=== PATIENT | male | born 1980 | race Caucasian/White ===

== ENCOUNTER → 2017-03-13 | Outpatient (CLI) | payer BC ==
--- NOTE | 2017-03-13 10:28 | CT ---
EXAMINATION TYPE: CT abdomen pelvis w con DATE OF EXAM: 03/13/2017 COMPARISON: NONE HISTORY: LLQ pain, diarrhea, constipation and flatulence for approximately [address] DLP: 1396.30 mGycm Automated exposure control for dose reduction was used. TECHNIQUE: Helical acquisition of images was performed from the lung bases through the pelvis. CONTRAST: Performed with Oral Contrast and with IV Contrast, patient injected with 100 ml mL of Omnipaque 300. FINDINGS: LUNG BASES: No significant abnormality is appreciated. LIVER/GB: The liver appears to be slightly hypodense. This could be due to hepatic steatosis, evaluat ion is suboptimal on a contrast-enhanced examination. There is suspicion of focal fatty sparing in th e gallbladder fossa. The gallbladder is unremarkable. There is no intra or extrahepatic biliary dilat ation. PANCREAS: No significant abnormality is seen. SPLEEN: No significant abnormality is seen. ADRENALS: No significant abnormality is seen. KIDNEYS: There is a 8 mm interpolar cortical cyst identified within the left kidney. A dromedary hump is also noted, this is normal. There is no hydronephrosis. FREE AIR: No free air is visualized. RETROPERITONEAL ADENOPATHY: None visualized REPRODUCTIVE ORGANS: No significant abnormality is seen URINARY BLADDER: No significant abnormality is seen. PELVIC ADENOPATHY: None visualized. OSSEOUS STRUCTURES: No significant abnormality is seen. BOWEL: There is a moderate amount stool noted in colon with stool noted in the rectum. There are sev eral areas where the colonic wall is questionably thickened. These are best seen on series 3 on image 79 where there is some thickening noted of the left aspect of the superior rectum. This could be due to fecal matter however the extent of nonopacification by the contrast measures 2.7 x 1.7 cm. There is a second area which is concerning is in the distal descending colon best seen on image 74. This ar ea demonstrates an adequate amount of intraluminal gas wall is more than what would be expected raffi lly. There is also vague pericolonic infiltration of the fat. OTHER: There is a tiny fat filled left inguinal hernia. There is a tiny fat filled umbilical hernia. IMPRESSION: AT LEAST 2 AREAS OF SUSPECTED COLONIC WALL THICKENING. ALTHOUGH FINDINGS COULD BE OF NO CLINICAL SIGN IFICANCE THE POSSIBILITY OF A NEOPLASM AT THESE LOCATIONS IS DIFFICULT TO ENTIRELY EXCLUDE AND A COLO NOSCOPY IS RECOMMENDED. SUSPECTED HEPATIC STEATOSIS. CORRELATION WITH LIVER FUNCTION TESTS IS RECOMMENDED.
== END | disposition home or self-care (01) ==
LOC: RADCTMAIN 08:19
PROVIDERS: ATTEND Family Medicine
DX: K59.09 Other constipation (principal); R19.7 Diarrhea, unspecified; R10.32 Left lower quadrant pain
CPT/HCPCS: 74177; Q9967

== ENCOUNTER 2017-04-01 12:02 | Day surgery (SDC) | payer BC ==
[2017-03-30 14:47] VITALS: BMI 30.2
[~2017-04-01 12:02] MED LIST: LACTATED RINGERS 1,000 ML IV SCH
[2017-04-01 12:23] VITALS: TEMP 97.6
[2017-04-01] MEDS ORDERED: LIDOCAINE 1% 20 ML VIAL (10MG/ML) FOR IV START INTRADERMA ONE (12:40)
[2017-04-01] MEDS ORDERED: PROPOFOL 10 MG/ML 20 ML VIAL IV ONE (12:55)
[2017-04-01] MEDS ORDERED: LIDOCAINE 1% INJ 10MG/ML (20 ML MDV) ONE (12:55)
--- NOTE | 2017-04-01 12:59 | P.GSHP ---
History of Present Illness H&P Date: 04/01/17 Chief Complaint: Left lower quadrant pain This is a 36-year-old male who's had complaints of left lower quadrant pain. Patient had a computed tomography scan performed which showed thickening of the rectum and descending colon. He will today for colonoscopy to for inflammation or neoplasm of the colon. He states he's had pain for present 6 months. - Constitutional Constitutional: Reports as per HPI Past Medical History Past Medical History: Asthma, GERD/Reflux, Hypertension Additional Past Medical History / Comment(s): carpral tunnel History of Any Multi-Drug Resistant Organisms: None Reported Past Surgical History: No Surgical Hx Reported Additional Past Surgical History / Comment(s): WISDOM THEETH EXTRACTION Past Anesthesia/Blood Transfusion Reactions: Motion Sickness Smoking Status: Never smoker - Past Family History Mother Family Medical History: Pulmonary Embolus Medications and Allergies Home Medications Medication Instructions Recorded Confirmed Type Lisinopril [Zestril] 20 mg PO DAILY 01/21/14 04/01/17 History Pantoprazole Sodium [Protonix] 20 mg PO DAILY 01/21/14 04/01/17 History Albuterol Inhaler [Ventolin Hfa 1 - 2 puff INHALATION Q6HR PRN 03/30/17 History Inhaler] Allergies Allergy/AdvReac Type Severity Reaction Status Date / Time ragweed pollen Allergy SNEEZING,ITCHY Verified 03/30/17 14:01 EYES Surgical - Exam Vital Signs Temp Pulse Resp BP Pulse Ox 97.6 F 75 18 126/97 98 04/01/17 12:18 04/01/17 12:18 04/01/17 12:18 04/01/17 12:18 04/01/17 12:18 - General well developed, no distress - Eyes PERRL - ENT normal pinna - Neck no masses - Respiratory normal expansion - Cardiovascular Rhythm: regular - Abdomen Abdomen: soft, non tender Assessment and Plan Plan: Colonic wall thickening on CAT scan. Left lower quadrant pain We'll perform colonoscopy.
--- NOTE | 2017-04-01 13:13 | P.OP ---
Date of Procedure: 04/01/17 Preoperative Diagnosis: Colonoscopy Postoperative Diagnosis: Mild diverticular changes Sigmoid colon biopsy pathology pending Procedure(s) Performed: Colonoscopy Implants: Anesthesia: MAC Surgeon: Alan Chu Pathology: other (Sigmoid colon biopsies) Condition: stable Disposition: PACU Indications for Procedure: Operative Findings: Description of Procedure: Patient's placed on the endoscopy table in the lateral position. He received IV sedation. Digital rectal exam was performed which revealed no abnormalities. The prostate was symmetric without nodules. The flexible colonoscope was then placed patient anus and passed throughout the entire colon. The ileocecal valve was visualized. The cecum, ascending and transverse colon appeared normal. In the descending; was mild diverticular changes. The distal area and; appeared to be minimally inflamed. A biopsies performed. The rectum appeared normal. There is no masses or tumors seen the rectum. There is known to any rectal formation. Scope was withdrawn for patient.
[2017-04-01 13:33] VITALS: BP 125/87; PULSE 87; RESP 18
== END 2017-04-01 13:56 | disposition home or self-care (01) ==
LOC: ORWHC2ENDO 12:02
PROVIDERS: ATTEND Surgery
DX: K57.30 Diverticulosis of large intestine without perforation or abscess without bleeding (principal); K21.9 Gastro-esophageal reflux disease without esophagitis; J45.909 Unspecified asthma, uncomplicated; I10 Essential (primary) hypertension; Z91.09 Other allergy status, other than to drugs and biological substances; Z79.899 Other long term (current) drug therapy
CPT/HCPCS: 45380; 88305; J2001; J2704

== ENCOUNTER → 2018-10-02 | Outpatient (CLI) | payer BC ==
--- NOTE | 2018-10-02 09:43 | MR ---
EXAMINATION TYPE: MR brain wo/w con DATE OF EXAM: 10/02/2018 9:34 AM COMPARISON: None. HISTORY: Migraine with aura /Vomiting TECHNIQUE: Multiplanar, multiecho imaging of the brain was obtained with and without intravenous adm inistration of 11.5 mL intravenous Gadavist. FINDINGS: Midline structures are unremarkable. There is a normal craniocervical junction. Echoplanar diffusion imaging is normal. There are normal vascular flow voids. The orbits are unremarkable. There is no evidence of a CP angle mass lesion. There is no acute focal lesion, mass effect or midline shift identified. I do not see evidence of int racranial blood. Following intravenous administration of gadolinium, I do not see evidence of abnormal enhancement. IMPRESSION: NORMAL MRI OF THE BRAIN.
== END | disposition home or self-care (01) ==
LOC: RADMRIMAIN 08:16
PROVIDERS: ATTEND Family Medicine
DX: G43.119 Migraine with aura, intractable, without status migrainosus (principal); I10 Essential (primary) hypertension; R11.10 Vomiting, unspecified
CPT/HCPCS: 82565; 84520; 70553; 36415; A9585

== ENCOUNTER 2019-12-25 21:26 | Emergency (ER) | payer BC ==
[2019-12-25] MEDS ORDERED: FAMOTIDINE 20 MG/2 ML VIAL IV STA (21:49)
[2019-12-25] MEDS ORDERED: SODIUM CHLORIDE 0.9% 1,000 ML IV STA (21:49)
[2019-12-25] MEDS ORDERED: MORPHINE SULFATE 4 MG/ML SYRINGE IV STA (21:49)
--- NOTE | 2019-12-25 22:01 | ED ---
Fever HPI - General Source: patient Mode of arrival: wheelchair Limitations: no limitations <Hima Barrett - Last Filed: 12/26/19 02:40> <Ranulfo Zhang - Last Filed: 12/27/19 06:11> - General Chief Complaint: Fever Stated Complaint: Fever Time Seen by Provider: 12/25/19 21:31 - History of Present Illness Initial Comments: Patient is a 39-year-old male with history of exercise-induced asthma presenting to the emergency department with a chief complaint of fever. Patient states a sudden onset of fever this morning. Patient reports waking up with a fever of 102. Patient reports taking Tylenol but was not able to break the fever. Patient reports nausea with 2 episodes of nonbilious, nonbloody vomiting. Does report a mild, productive cough for states that has been present for about 2 years due to his asthma. States he rarely uses the albuterol inhaler. States he had general body aches but reports going for a hike yesterday and relates the aches and pains to muscle soreness. Denies any wheezing or shortness of breath at this time. States today's also developed some dysuria and increased urgency but no frequency. He reports dribbling. States he is not able to have a full bowel movement since this morning. Denies any abdominal pain constipation or diarrhea. Denies testicular tenderness or swelling. Denies any penile discharge or rashes. No concern for STDs. States she has been drinking less than usual. Denies direct Covid exposure. (Hima Barrett) - Related Data Home Medications Medication Instructions Recorded Confirmed Lisinopril [Zestril] 20 mg PO DAILY 01/21/14 12/25/19 Pantoprazole Sodium [Protonix] 20 mg PO DAILY 01/21/14 12/25/19 Albuterol Inhaler (Bulk) [Ventolin 1 - 2 puff INHALATION RT-QID PRN 03/30/17 12/25/19 Hfa Inhaler] Acetaminophen Tab [Tylenol Tab] 1,000 mg PO Q6H PRN 12/25/19 12/25/19 Previous Rx's Medication Instructions Recorded Ondansetron Odt [Zofran Odt] 4 mg PO Q8HR PRN #14 tab 12/26/19 Allergies Allergy/AdvReac Type Severity Reaction Status Date / Time ragweed pollen Allergy SNEEZING,ITCHY Verified 12/25/19 22:18 EYES Review of Systems ROS Other: All systems not noted in ROS Statement are negative. <Hima Barrett - Last Filed: 12/26/19 02:40> ROS Other: All systems not noted in ROS Statement are negative. <ElancalixtoRanulfo - Last Filed: 12/27/19 06:11> ROS Statement: Those systems with pertinent positive or pertinent negative responses have been documented in the HPI. Past Medical History Past Medical History: Asthma, GERD/Reflux, Hypertension Additional Past Medical History / Comment(s): carpral tunnel History of Any Multi-Drug Resistant Organisms: None Reported Past Surgical History: No Surgical Hx Reported Additional Past Surgical History / Comment(s): WISDOM THEETH EXTRACTION Past Anesthesia/Blood Transfusion Reactions: Motion Sickness Past Psychological History: No Psychological Hx Reported Smoking Status: Never smoker - Past Family History Mother Family Medical History: Pulmonary Embolus <Hima Barrett - Last Filed: 12/26/19 02:40> General Exam Limitations: no limitations General appearance: alert, in no apparent distress Head exam: Present: atraumatic, normocephalic, normal inspection Eye exam: Present: normal appearance, PERRL, EOMI Pupils: Present: normal accommodation ENT exam: Present: normal exam, normal oropharynx, mucous membranes moist, TM's normal bilaterally, normal external ear exam Neck exam: Present: normal inspection, full ROM. Absent: lymphadenopathy Respiratory exam: Present: normal lung sounds bilaterally. Absent: respiratory distress, wheezes, rales, rhonchi, stridor, chest wall tenderness Cardiovascular Exam: Present: normal rhythm, tachycardia, normal heart sounds GI/Abdominal exam: Present: soft, normal bowel sounds. Absent: distended, tend erness, guarding exam: Present: normal inspection, circumcision. Absent: testicular tenderness, urethral discharge, scrotal swelling, vertical testicular lie Extremities exam: Present: normal inspection, full ROM Back exam: Present: normal inspection, full ROM Neurological exam: Present: alert, oriented X3 Psychiatric exam: Present: normal affect, normal mood Skin exam: Present: warm, dry, intact, normal color <Hima Barrett - Last Filed: 12/26/19 02:40> Course Vital Signs 0412/25/19 12/25/19 21:26 21:41 22:00 Temperature 99.6 F 102.3 F H Pulse Rate 143 H 121 H Pulse Rate [ Apical] Respiratory 18 16 Rate Blood Pressure 144/91 O2 Sat by Pulse 99 Oximetry 12/25/19 12/25/19 12/25/19 22:10 22:20 22:30 Temperature Pulse Rate 122 H 122 H 122 H Pulse Rate [ Apical] Respiratory 8 L 18 14 Rate Blood Pressure 109/74 109/74 109/74 O2 Sat by Pulse 99 97 97 Oximetry 12/25/19 12/25/19 12/25/19 22:40 22:50 23:00 Temperature Pulse Rate 120 H 112 H 130 H Pulse Rate [ Apical] Respiratory 11 L 16 10 L Rate Blood Pressure 109/74 109/74 109/74 O2 Sat by Pulse 97 97 99 Oximetry 12/25/19 12/25/19 12/25/19 23:10 23:20 23:30 Temperature Pulse Rate 121 H 115 H Pulse Rate [ Apical] Respiratory 8 L 18 Rate Blood Pressure 106/70 106/70 106/70 O2 Sat by Pulse 97 96 Oximetry 12/25/19 12/26/19 12/26/19 23:40 00:08 00:37 Temperature 102.0 F H Pulse Rate 112 H 110 H 111 H Pulse Rate [ 112 H Apical] Respiratory 15 16 16 Rate Blood Pressure 106/70 95/61 90/58 O2 Sat by Pulse 97 98 96 Oximetry 12/26/19 12/26/19 12/26/19 01:29 01:45 02:28 Temperature 100.9 F H 100.4 F H Pulse Rate 107 H 107 H 106 H Pulse Rate [ Apical] Respiratory 16 14 16 Rate Blood Pressure 93/62 101/60 111/65 O2 Sat by Pulse 96 96 96 Oximetry Medical Decision Making - Lab Data Result diagrams: 12/25/19 20:35 12/25/19 20:35 <Hima Barrett - Last Filed: 12/26/19 02:40> - Lab Data Result diagrams: 12/25/19 20:35 12/25/19 20:35 <Ranulfo Zhang - Last Filed: 12/27/19 06:11> - Medical Decision Making Patient is a 39-year-old male with history of asthma presented emergency Department with a chief complaint of fever. Sudden onset of a fever earlier today that was not able to be broken with Tylenol. On initial evaluation patient does not appear to be in any respiratory distress. Patient does report episodes of nonbilious, nonbloody vomiting. Patient was given antiemetics and fluids. on Reevaluation, patient reports the nausea has resolved. States he f eels better. Even after a liter of fluids, patient did appear to be slightly hypotensive. Patient was given antipyretics in the ED as well. Chest x-ray is unremarkable. CBC shows mild elevation of neutrophils but no leukocytosis. CMP shows mildly elevated bun which I suspect is secondary to fluid loss from vomiting. Patient did also complain of obstructive urinary symptoms. UA is unremarkable. Post void residual volume is 22 mL. EKG shows sinus tachycardia. Blood cultures and lactic were obtained. Lactate 1.7. Patient was given a second bolus fluids which improved his blood pressure. Patient continued to deny any shortness of breath, chest or abdominal pain. Covid testing pending. Patient advised to self isolate and continue taking Tylenol to alleviate the fever. Patient also given a prescription of Zofran. Patient advised to drink lots of fluids. also examined the patient and is agreeable with the treatment plan. Return parameters thoroughly discussed with patient was understanding and agreeable. (Hima Barrett) I saw this patient in conjunction with the physician catering administrative assistant. I performed independent history and physical exam. Agree with case management. (Ranulfo Zhang) - Lab Data Lab Results 12/25/19 12/25/19 12/25/19 Range/Units 20:35 20:35 23:17 WBC 9.6 (3.8-10.6) k/uL RBC 5.66 (4.30-5.90) m/uL Hgb 16.3 (13.0-17.5) gm/dL Hct 46.3 (39.0-53.0) % MCV 81.8 (80.0-100.0) fL MCH 28.7 (25.0-35.0) pg MCHC 35.1 (31.0-37.0) g/dL RDW 13.2 (11.5-15.5) % Plt Count 261 (150-450) k/uL Neutrophils % 91 % Lymphocytes % 5 % Monocytes % 3 % Eosinophils % 1 % Basophils % 0 % Neutrophils # 8.7 H (1.3-7.7) k/uL Lymphocytes # 0.5 L (1.0-4.8) k/uL Monocytes # 0.3 (0-1.0) k/uL Eosinophils # 0.1 (0-0.7) k/uL Basophils # 0.0 (0-0.2) k/uL Sodium 136 L (137-145) mmol/L Potassium 3.9 (3.5-5.1) mmol/L Chloride 103 (98-107) mmol/L Carbon Dioxide 18 L (22-30) mmol/L Anion Gap 15 mmol/L BUN 21 H (9-20) mg/dL Creatinine 1.17 (0.66-1.25) mg/dL Est GFR (CKD-EPI)AfAm 90 (>60 ml/min/1.73 sqM) Est GFR (CKD-EPI)NonAf 78 (>60 ml/min/1.73 sqM) Glucose 109 H (74-99) mg/dL Plasma Lactic Acid Derrick (0.7-2.0) mmol/L Calcium 9.9 (8.4-10.2) mg/dL Total Bilirubin 0.8 (0.2-1.3) mg/dL AST 36 (17-59) U/L ALT 26 (4-49) U/L Alkaline Phosphatase 64 (38-126) U/L Total Protein 8.2 (6.3-8.2) g/dL Albumin 4.8 (3.5-5.0) g/dL Amylase 77 (30-110) U/L Lipase 68 (23-300) U/L Urine Color Yellow Urine Appearance Clear (Clear) Urine pH 5.5 (5.0-8.0) Ur Specific [place] 1.019 (1.001-1.035) Urine Protein Trace H (Negative) Urine Glucose (UA) Negative (Negative) Urine Ketones Negative (Negative) Urine Blood Negative (Negative) Urine Nitrite Negative (Negative) Urine Bilirubin Negative (Negative) Urine Urobilinogen <2.0 (<2.0) mg/dL Ur Leukocyte Esterase Negative (Negative) Coronavirus (PCR) (Not Detected) 12/26/19 12/26/19 Range/Units 01:10 01:30 WBC (3.8-10.6) k/uL RBC (4.30-5.90) m/uL Hgb (13.0-17.5) gm/dL Hct (39.0-53.0) % MCV (80.0-100.0) fL MCH (25.0-35.0) pg MCHC (31.0-37.0) g/dL RDW (11.5-15.5) % Plt Count (150-450) k/uL Neutrophils % % Lymphocytes % % Monocytes % % Eosinophils % % Basophils % % Neutrophils # (1.3-7.7) k/uL Lymphocytes # (1.0-4.8) k/uL Monocytes # (0-1.0) k/uL Eosinophils # (0-0.7) k/uL Basophils # (0-0.2) k/uL Sodium (137-145) mmol/L Potassium (3.5-5.1) mmol/L Chloride (98-107) mmol/L Carbon Dioxide (22-30) mmol/L Anion Gap mmol/L BUN (9-20) mg/dL Creatinine (0.66-1.25) mg/dL Est GFR (CKD-EPI)AfAm (>60 ml/min/1.73 sqM) Est GFR (CKD-EPI)NonAf (>60 ml/min/1.73 sqM) Glucose (74-99) mg/dL Plasma Lactic Acid Derrick 1.6 (0.7-2.0) mmol/L Calcium (8.4-10.2) mg/dL Total Bilirubin (0.2-1.3) mg/dL AST (17-59) U/L ALT (4-49) U/L Alkaline Phosphatase (38-126) U/L Total Protein (6.3-8.2) g/dL Albumin (3.5-5.0) g/dL Amylase (30-110) U/L Lipase (23-300) U/L Urine Color Urine Appearance (Clear) Urine pH (5.0-8.0) Ur Specific [place] (1.001-1.035) Urine Protein (Negative) Urine Glucose (UA) (Negative) Urine Ketones (Negative) Urine Blood (Negative) Urine Nitrite (Negative) Urine Bilirubin (Negative) Urine Urobilinogen (<2.0) mg/dL Ur Leukocyte Esterase (Negative) Coronavirus (PCR) Not Detected (Not Detected) - EKG Data EKG Comments: Sinus tachycardia Ventricular rate 140, [place] 132, QRS 74, QTC 433. (Hima Barrett) Disposition Is patient prescribed a controlled substance at d/c from ED?: No Time of Disposition: 01:53 <Hima Barrett - Last Filed: 12/26/19 02:40> <Ranulfo Zhang - Last Filed: 12/27/19 06:11> Clinical Impression: Fever, Nausea & vomiting Disposition: HOME SELF-CARE Condition: Good Instructions (If sedation given, give patient instructions): Fever in Adults (ED) Additional Instructions: Continue taking Tylenol at home for fever control. Take prescribed medication as directed. Drink lots of fluids. She will be contacted with results regard ing coronavirus testing. Prescriptions: Ondansetron Odt [Zofran Odt] 4 mg PO Q8HR PRN #14 tab PRN Reason: Nausea Referrals: Marni Odonnell III, MD [Primary Care Provider] - 1-2 days
[2019-12-25 22:25] LABS: Basophils % (A) 0 %; Eosinophils # (A) 0.1 k/uL (0-0.7); Eosinophils % (A) 1 %; HCT 46.3 % (39.0-53.0); HGB 16.3 gm/dL (13.0-17.5); Lymphocytes # (A) 0.5 k/uL (1.0-4.8); Lymphocytes % (A) 5 %; MCH 28.7 pg (25.0-35.0); MCHC 35.1 g/dL (31.0-37.0); MCV 81.8 fL (80.0-100.0); Mean Platelet Volume 7.1; Monocytes # (A) 0.3 k/uL (0-1.0); Monocytes % (A) 3 %; Neutrophils # (A) 8.7 k/uL (1.3-7.7); Neutrophils % (A) 91 %; Platelet Count 261 k/uL (150-450); RBC 5.66 m/uL (4.30-5.90); RDW 13.2 % (11.5-15.5); WBC 9.6 k/uL (3.8-10.6)
--- NOTE | 2019-12-25 22:26 | XR ---
EXAMINATION TYPE: XR chest 1V portable DATE OF EXAM: 12/25/2019 COMPARISON: NONE HISTORY: Chest pain Fever TECHNIQUE: 01/21/2014 FINDINGS: Heart is normal. Lungs are clear of consolidation. There are no hilar masses. Costophrenic angles are clear. There are chest leads. There is no pleural effusion. IMPRESSION: No active cardiopulmonary disease. Normal heart. No change.
[2019-12-25 22:43] LABS: Albumin 4.8 g/dL (3.5-5.0); Calcium 9.9 mg/dL (8.4-10.2); Potassium 3.9 mmol/L (3.5-5.1); Total Bilirubin 0.8 mg/dL (0.2-1.3); Total Protein 8.2 g/dL (6.3-8.2)
[2019-12-25] MEDS ORDERED: ONDANSETRON ODT 4 MG TAB PO STA (23:28)
[2019-12-25] MEDS ORDERED: ACETAMINOPHEN TAB 500 MG TAB PO STA (23:29)
[2019-12-25 23:54] LABS: Appearance,Urine Clear (Clear); Bilirubin,Urine Negative (Negative); Blood,Urine Negative (Negative); Color,Urine Yellow; Glucose,Urine (UA) Negative (Negative); Ketones,Urine Negative (Negative); Leukocyte Esterase,Urine Negative (Negative); Nitrite,Urine Negative (Negative); PH, Urine 5.5 (5.0-8.0); Protein,Urine Trace (Negative); Specific Gravity,Urine 1.019 (1.001-1.035); Urobilinogen,Urine <2.0 mg/dL (<2.0)
[2019-12-26] MEDS ORDERED: SODIUM CHLORIDE 0.9% 1,000 ML IV STA (00:23)
[2019-12-26] MEDS ORDERED: ONDANSETRON 4 MG ODT STARTER PACK 2 TAB BTL PO STA (02:06)
[2019-12-26 02:28] VITALS: BP 111/65; PULSE 106; RESP 16; TEMP 100.4
== END 2019-12-26 02:35 | disposition home or self-care (01) ==
LOC: EC 21:26
DX: R50.9 Fever, unspecified (principal); R11.2 Nausea with vomiting, unspecified; R05 Cough; I95.9 Hypotension, unspecified; D72.828 Other elevated white blood cell count; R00.0 Tachycardia, unspecified; R30.0 Dysuria; J45.909 Unspecified asthma, uncomplicated; I10 Essential (primary) hypertension; K21.9 Gastro-esophageal reflux disease without esophagitis; Z79.899 Other long term (current) drug therapy; Z91.018 Allergy to other foods
CPT/HCPCS: 36415; 80053; 82150; 83605; 83690; 85025; 81003; 87040; 87635; 71045; 99283; 96374; 96361 ×2; S0119

== ENCOUNTER → 2021-03-13 | Outpatient (CLI) | payer OTHER ==
--- NOTE | 2021-03-13 14:24 | CT ---
EXAMINATION TYPE: CT abdomen pelvis w con DATE OF EXAM: 03/13/2021 COMPARISON: 03/13/2017 INDICATION: LLQ pain DLP: 1710.9 mGycm, Automated exposure control for dose reduction was used. CONTRAST: 100 mL of Isovue 300. Study performed with Oral Contrast TECHNIQUE: Axial images were obtained from above the diaphragm to the pubic rami in the axial plane a t 5 mm thick sections. Reconstructed images are reviewed on the computer in the coronal plane. FINDINGS: Limited CT sections are obtained the lung bases. The lung bases are clear. CT ABDOMEN: Liver: Liver is normal density without discrete masses or cysts. Spleen: Normal Pancreas: Normal Adrenal glands: The adrenal glands are normal. Gallbladder: Normal Kidneys: No masses are evident. No hydronephrosis is present. No cysts are present. Delayed images were obtained through the kidneys, which remain unremarkable. Aorta: Normal Inferior vena cava: Normal. CT PELVIS: There is thickening through the distal cysts descending colon and proximal sigmoid colon. Adjacent in flammatory changes are evident. Correlate for colitis. Diverticulitis could be considered. Neoplasm i s not excluded. Follow-up is recommended. No obstruction is evident. No suspicious changes to suggest abscess or free air is evident. Appendix: Normal as visualized. Urinary bladder: Normal. Genitourinary structures: Prostate appears unremarkable. Osseous structures: No suspicious lytic or sclerotic lesions. IMPRESSIONS: 1. Bowel wall thickening and adjacent inflammatory changes through the descending colon sigmoid colo n junction suspicious for colitis or diverticulitis. Underlying neoplasm is not excluded. Follow-up i s recommended. A [place] level critical message alert has been initiated for Shawanda Bailey MD via the [facility] Critical Results System on 03/13/2021 2:22 PM. This message alert has been sent to Ambroc[facility] Weller via the preferences provided by the clinician for the receipt of Radiology Critical Findings. Passbox ID [id number].
== END | disposition home or self-care (01) ==
LOC: RADCTMAIN 07:56
PROVIDERS: ATTEND Internal Medicine Gastroenterology
DX: R10.32 Left lower quadrant pain (principal)
CPT/HCPCS: 74177; Q9967

== ENCOUNTER 2021-05-29 20:19 | Emergency (ER) | payer OTHER ==
[2021-05-29 20:31] VITALS: RESP 18; TEMP 98.8
[2021-05-29] MEDS ORDERED: SODIUM CHLORIDE 0.9% 1,000 ML IV STA (20:44)
--- NOTE | 2021-05-29 21:01 | ED ---
Abdominal Pain HPI - General Chief Complaint: Abdominal Pain Stated Complaint: Abd Pain Time Seen by Provider: 05/29/21 20:39 Source: patient, RN notes reviewed Mode of arrival: ambulatory Limitations: no limitations - History of Present Illness Initial Comments: 40-year-old male presents emergency Department with chief complaint of abdominal pain. Patient states he was golfing a [place] diverticulitis. Patient states he's had new pain today worsening his periumbilical region. Patient had prior colonoscopy. Patient sees GI Dr. Barrett. Patient has no complaints of severe nausea vomiting diarrhea constipation did have some mild dysuria prior to urinate today - Related Data Home Medications Medication Instructions Recorded Confirmed Pantoprazole Sodium [Protonix] 20 mg PO DAILY 01/21/14 05/29/21 lisinopriL [Zestril] 20 mg PO DAILY 01/21/14 05/29/21 Dicyclomine HCl 10 mg PO TID 05/29/21 05/29/21 Allergies Allergy/AdvReac Type Severity Reaction Status Date / Time ragweed pollen Allergy SNEEZING,ITCHY Verified 05/29/21 20:50 EYES Review of Systems ROS Statement: Those systems with pertinent positive or pertinent negative responses have been documented in the HPI. ROS Other: All systems not noted in ROS Statement are negative. Past Medical History Past Medical History: Asthma, GERD/Reflux, Hypertension Additional Past Medical History / Comment(s): carpral tunnel, diverticulitis. History of Any Multi-Drug Resistant Organisms: None Reported Past Surgical History: No Surgical Hx Reported Additional Past Surgical History / Comment(s): WISDOM THEETH EXTRACTION Past Anesthesia/Blood Transfusion Reactions: Motion Sickness Past Psychological History: No Psychological Hx Reported Smoking Status: Never smoker Past Alcohol Use History: Rare Past Drug Use History: None Reported - Past Family History Mother Family Medical History: Pulmonary Embolus General Exam Limitations: no limitations General appearance: alert, in no apparent distress Head exam: Present: atraumatic, normocephalic, normal inspection Respiratory exam: Present: normal lung sounds bilaterally. Absent: respiratory distress, wheezes, rales, rhonchi, stridor Cardiovascular Exam: Present: regular rate, normal rhythm, normal heart sounds. Absent: systolic murmur, diastolic murmur, rubs, gallop, clicks GI/Abdominal exam: Present: soft, tenderness, normal bowel sounds. Absent: distended, guarding, rebound, rigid Back exam: Absent: CVA tenderness (R), CVA tenderness (L) Neurological exam: Present: alert, oriented X3 Course Vital Signs 05/29/21 20:28 Temperature 98.8 F Pulse Rate 80 Respiratory 18 Rate Blood Pressure 136/87 O2 Sat by Pulse 99 Oximetry Medical Decision Making - Medical Decision Making 1-year-old male presented for abdominal pain. CT shows evidence of diverticulitis. Patient was on antibiotics 2 weeks ago. Patient placed on Augmentin with close follow-up return parameters were discussed. - Lab Data Result diagrams: 05/29/21 20:51 05/29/21 20:51 Lab Results 05/29/21 05/29/21 05/29/21 Range/Units 20:51 20:51 20:51 WBC 11.7 H (3.8-10.6) k/uL RBC 5.02 (4.30-5.90) m/uL Hgb 14.8 (13.0-17.5) gm/dL Hct 42.6 (39.0-53.0) % MCV 84.7 (80.0-100.0) fL MCH 29.5 (25.0-35.0) pg MCHC 34.8 (31.0-37.0) g/dL RDW 14.6 (11.5-15.5) % Plt Count 287 (150-450) k/uL MPV 7.2 Neutrophils % 68 % Lymphocytes % 20 % Monocytes % 8 % Eosinophils % 1 % Basophils % 1 % Neutrophils # 7.9 H (1.3-7.7) k/uL Lymphocytes # 2.4 (1.0-4.8) k/uL Monocytes # 0.9 (0-1.0) k/uL Eosinophils # 0.1 (0-0.7) k/uL Basophils # 0.1 (0-0.2) k/uL Sodium 136 L (137-145) mmol/L Potassium 4.0 (3.5-5.1) mmol/L Chloride 105 (98-107) mmol/L Carbon Dioxide 22 (22-30) mmol/L Anion Gap 9 mmol/L BUN 17 (9-20) mg/dL Creatinine 1.04 (0.66-1.25) mg/dL Est GFR (CKD-EPI)AfAm >90 (>60 ml/min/1.73 sqM) Est GFR (CKD-EPI)NonAf 89 (>60 ml/min/1.73 sqM) Glucose 92 (74-99) mg/dL Plasma Lactic Acid Derrick 1.0 (0.7-2.0) mmol/L Calcium 9.3 (8.4-10.2) mg/dL Total Bilirubin 0.3 (0.2-1.3) mg/dL AST 45 (17-59) U/L ALT 31 (4-49) U/L Alkaline Phosphatase 51 (38-126) U/L Total Protein 7.0 (6.3-8.2) g/dL Albumin 4.1 (3.5-5.0) g/dL Amylase 72 (30-110) U/L Lipase 58 (23-300) U/L Disposition Clinical Impression: Diverticulitis Disposition: HOME SELF-CARE Condition: Stable Instructions (If sedation given, give patient instructions): Diverticulitis Diet (ED), Diverticulitis (ED) Additional Instructions: Please return to the Emergency Department if symptoms worsen or any other concerns. Is patient prescribed a controlled substance at d/c from ED?: No Referrals: Keira Leyva MD [Primary Care Provider] - 1-2 days Time of Disposition: 22:04
[2021-05-29 21:13] LABS: ALT 31 U/L (4-49); AST 45 U/L (17-59); African American GFR (CKD) >90 (>60 ml/min/1.73 sqM); Albumin 4.1 g/dL (3.5-5.0); Alkaline Phosphatase 51 U/L (38-126); Amylase 72 U/L (30-110); Anion Gap 9 mmol/L; Blood Urea Nitrogen 17 mg/dL (9-20); Calcium 9.3 mg/dL (8.4-10.2); Carbon Dioxide 22 mmol/L (22-30); Chloride 105 mmol/L (98-107); Glucose 92 mg/dL (74-99); Lipase 58 U/L (23-300); Non-African American GFR(CKD) 89 (>60 ml/min/1.73 sqM); Sodium 136 mmol/L (137-145); Total Bilirubin 0.3 mg/dL (0.2-1.3)
[2021-05-29 21:16] LABS: Basophils # (A) 0.1 k/uL (0-0.2); Basophils % (A) 1 %; Eosinophils # (A) 0.1 k/uL (0-0.7); Eosinophils % (A) 1 %; HCT 42.6 % (39.0-53.0); HGB 14.8 gm/dL (13.0-17.5); Lymphocytes # (A) 2.4 k/uL (1.0-4.8); Lymphocytes % (A) 20 %; MCH 29.5 pg (25.0-35.0); MCHC 34.8 g/dL (31.0-37.0); MCV 84.7 fL (80.0-100.0); Mean Platelet Volume 7.2; Monocytes # (A) 0.9 k/uL (0-1.0); Monocytes % (A) 8 %; Neutrophils # (A) 7.9 k/uL (1.3-7.7); Neutrophils % (A) 68 %; Platelet Count 287 k/uL (150-450); RBC 5.02 m/uL (4.30-5.90); RDW 14.6 % (11.5-15.5); WBC 11.7 k/uL (3.8-10.6)
--- NOTE | 2021-05-29 21:28 | CT ---
EXAMINATION TYPE: CT abdomen pelvis w con DATE OF EXAM: 05/29/2021 COMPARISON: 03/13/2021. HISTORY: low abdominal pain CT DLP: 1544.3 mGycm Automated exposure control for dose reduction was used. TECHNIQUE: Helical acquisition of images was performed from the lung bases through the pelvis. CONTRAST: Performed without Oral Contrast and with IV Contrast, patient injected with 100 mL of Isovue 300. FINDINGS: LUNG BASES: No significant abnormality is appreciated. LIVER/GB: No significant abnormality is appreciated. PANCREAS: No significant abnormality is seen. SPLEEN: No significant abnormality is seen. ADRENALS: No significant abnormality is seen. KIDNEYS: No significant abnormality is seen. Simple 8 mm left renal cyst. FREE AIR: No free air is visualized. RETROPERITONEAL ADENOPATHY: None visualized REPRODUCTIVE ORGANS: No significant abnormality is seen URINARY BLADDER: No significant abnormality is seen. PELVIC ADENOPATHY: None visualized. OSSEOUS STRUCTURES: No significant abnormality is seen. BOWEL: Moderate fat stranding involving the proximal sigmoid colonic diverticula. No bowel obstructi on or drainable fluid seen. No free air. OTHER: None IMPRESSION: FINDINGS CONSISTENT WITH RECURRENT SIGMOID COLONIC DIVERTICULITIS. NO EVIDENCE OF DRAINABLE FLUID COL LECTION. No bowel obstruction or free air.
[2021-05-29 22:02] LABS: Appearance,Urine Clear (Clear); Bilirubin,Urine Negative (Negative); Blood,Urine Negative (Negative); Color,Urine Yellow; Glucose,Urine (UA) Negative (Negative); Ketones,Urine Negative (Negative); Leukocyte Esterase,Urine Negative (Negative); Nitrite,Urine Negative (Negative); PH, Urine 6.5 (5.0-8.0); Protein,Urine Negative (Negative); Urobilinogen,Urine <2.0 mg/dL (<2.0)
[2021-05-29] MEDS ORDERED: cefTRIAXone IN SWFI 1,000 MG/10 ML SYRINGE IVP STA (22:03)
[2021-05-29] MEDS ORDERED: ACET/COD 300 MG/30 MG STARTER PACK 6 TAB BTL PO STA (22:04)
[2021-05-29 22:07] LABS: Specific Gravity,Urine >1.050 (1.001-1.035)
[2021-05-29 22:21] VITALS: BP 143/96; PULSE 65
== END 2021-05-29 22:21 | disposition home or self-care (01) ==
LOC: EC 20:19
DX: K57.92 Diverticulitis of intestine, part unspecified, without perforation or abscess without bleeding (principal); J45.909 Unspecified asthma, uncomplicated; I10 Essential (primary) hypertension; K21.9 Gastro-esophageal reflux disease without esophagitis; Z79.899 Other long term (current) drug therapy; Z91.018 Allergy to other foods
CPT/HCPCS: 36415; 80053; 82150; 83605; 83690; 85025; 81003; 74177; 99284; 96374; 96361; J0696; Q9967

== ENCOUNTER → 2023-03-25 | Outpatient (CLI) | payer OTHER ==
--- NOTE | 2023-03-25 09:31 | CT ---
EXAMINATION TYPE: CT abdomen pelvis wo con CT DLP: 1347.40 mGycm, Automated exposure control for dose reduction was used. DATE OF EXAM: 03/25/2023 9:23 AM COMPARISON: CT abdomen pelvis most recent from 05/29/2021 . CLINICAL INDICATION:Male, 42 years old with history of K21.9; LEFT SIDED ABDOMINAL PAIN, HX OF HERNIA REPAIR AND COLOECTOMY. TECHNIQUE: Standard CT of the abdomen and pelvis following the administration of oral contrast. Cor onal and sagittal reformats were performed. FINDINGS: Limited evaluation due to lack of intravenous contrast. LOWER CHEST: Unremarkable ABDOMEN LIVER: Unremarkable noncontrast appearance involving the visualized portions. GALLBLADDER AND BILE DUCTS: Unremarkable. PANCREAS: Unremarkable noncontrast appearance SPLEEN: Unremarkable noncontrast appearance ADRENAL GLANDS: Unremarkable noncontrast appearance. KIDNEYS AND URETERS: No evidence of hydronephrosis or renal calculus. Subcentimeter left renal cyst r edemonstrated and too small to characterize but likely represents a cyst. PELVIS BLADDER: Unremarkable REPRODUCTIVE: Unremarkable. ABDOMEN & PELVIS STOMACH AND BOWEL: Stomach and duodenum are unremarkable. Enteric contrast reaches the sigmoid colon. Post surgical changes from colectomy with anastomosis in the region of the sigmoid colon. No pericol ic abscess. No extravasation of contrast. Few scattered diverticula involving the descending colon. T he appendix is within normal limits. No evidence of bowel obstruction. PERITONEUM: No evidence of pneumoperitoneum or free fluid. Left lower quadrant scarring demonstrated. VASCULATURE: No evidence of aortic aneurysm. MUSCULOSKELETAL: No acute osseous abnormalities LYMPH NODES: No gross evidence for lymphadenopathy. SOFT TISSUE/ABDOMINAL WALL: Unremarkable IMPRESSION: 1. No acute abdominal/pelvic process. 2. Postsurgical changes from sigmoid colectomy. No evidence for obstruction or leak. No pericolic abs cess.
== END | disposition home or self-care (01) ==
LOC: RADCTMAIN 07:20
PROVIDERS: ATTEND Family Medicine
DX: K21.9 Gastro-esophageal reflux disease without esophagitis (principal); K57.32 Diverticulitis of large intestine without perforation or abscess without bleeding; Z90.49 Acquired absence of other specified parts of digestive tract
CPT/HCPCS: 74176

== ENCOUNTER → 2023-05-27 | Outpatient (CLI) | payer OTHER ==
--- NOTE | 2023-05-27 14:43 | P.SLEEP ---
History of Present Illness DATE: 05/27/2023 CONSULTATION/NEW PATIENT EVALUATION HISTORY OF PRESENT ILLNESS/SLEEP-WAKE EVALUATION: 42 year old gentleman had been evaluated in the sleep center for possible obstructive sleep apnea hypopnea syndrome. SLEEP SCHEDULE: Usually sleep schedule from 10:30 PM to 6:30 AM on weekdays and from 11:30 PM to 7 AM on weekend. FALLING ASLEEP: No problems with falling asleep. DURING SLEEP: Patient has loud snoring and witnessed episodes of stop breathing during the sleep clinic to his . He wakes up from sleep up to 5 times with 2 episodes of nocturia. No history of hypnogogical hallucinations, sleep paralysis, or cataplexy. DURING THE DAY/WAKE STATE: []. Blackwell sleepiness scale is 5, which is in normal range. Patient doesn't take naps. PAST MEDICAL HISTORY: Asthma, diverticulitis. PAST SURGICAL HISTORY: Status post hernia repair and colectomy for diverticulitis. MEDICATIONS: Lisinopril 20 mg once a day, pantoprazole 20 mg once a day, Ventolin as needed. SOCIAL HISTORY: Negative for smoking or using alcohol. FAMILY HISTORY: Heart problems. REVIEW OF SYSTEMS: Loud snoring, multiple awakenings from sleep. No fevers. No double vision. No recent chest pain. No shortness of breath. No abdominal pain. No bleeding episodes. No blood in urine. No seizure episodes. PHYSICAL EXAMINATION: GENERAL: A pleasant patient without any distress. VITAL SIGNS: BP 122/86 , HR 86 , RR 16 , weight 249.2 pounds, height 6 foot 2 inches, body mass index 31.9 . HEENT: PERRLA, EOMI. Evaluation of oropharynx showed tongue protrudes midline, low position of soft palate Mallampati 2-3. NECK: Supple. No JVD. Thyroid is not palpable. 17-1/4 inches in circumference. LUNGS: Clear to percussion and to auscultation. Good air exchange. No wheezing or rhonchi. HEART: S1, S2 regular. No murmurs, gallops or rubs. ABDOMEN: Soft and nontender. Bowel sounds are present. No organomegaly appre ciated. EXTREMITIES: No clubbing or cyanosis. 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 Cranial nerves 2 to 7 intact. There is no fasciculation or atrophy noted. No focal deficits observed. ASSESSMENT: 1. Loud snoring, witnessed episodes of stop breathing during the sleep, moderately low position of soft palate, wide neck 17-1/4 inches in circumference. Obstructive sleep apnea hypopnea syndrome. 2. Mild obesity BMI 31.9. 3. History of diverticulitis. 4. Status post colectomy for diverticulitis. 5 asthma. 6 . Status post hernia repair. PLAN: 1. Polysomnography for evaluation of patient's breathing during sleep. 2. CPAP/BiPAP titration if sleep study confirms obstructive sleep apnea- hypopnea syndrome. 3. Preferable position during sleep on the side. 4. No driving if patient feels any sleepiness. Patient is aware of civil and criminal liability for unsafe driving. 5. Sleep hygiene with regular sleep time for at least 7.5-8 hours. 6. Watching and losing weight. Thank you very much for referring this patient for consultation. Sincerely, Peña Osborne MD, PhD, FAASM. Diplomat of [place] [employer], Sleep Medicine Board by [place] [employer] [place] [employer] Radio Board Operator of [facility] [place] Past Medical History Past Medical History: Asthma, GERD/Reflux, Hypertension Additional Past Medical History / Comment(s): carpral tunnel, diverticulitis. History of Any Multi-Drug Resistant Organisms: None Reported Past Surgical History: No Surgical Hx Reported Additional Past Surgical History / Comment(s): WISDOM THEETH EXTRACTION Past Anesthesia/Blood Transfusion Reactions: Motion Sickness Past Psychological History: No Psychological Hx Reported Smoking Status: Never smoker Past Alcohol Use History: Rare Past Drug Use History: None Reported - Past Family History Mother Family Medical History: Pulmonary Embolus Medications and Allergies Home Medications Medication Instructions Recorded Confirmed Type Pantoprazole Sodium [Protonix] 20 mg PO DAILY 01/21/14 05/29/21 History lisinopriL [Zestril] 20 mg PO DAILY 01/21/14 05/29/21 History Amoxicillin/Potassium Clav 1 tab PO Q12HR #20 tab 05/29/21 Rx [Augmentin 875-125 Tablet] Dicyclomine HCl 10 mg PO TID 05/29/21 05/29/21 History Allergies Allergy/AdvReac Type Severity Reaction Status Date / Time ragweed pollen Allergy SNEEZING,ITCHY Verified 05/29/21 20:50 EYES Sleep Note - Sleep Note Sleep Note: Temperature: Pulse Rate: Respiratory Rate: Blood Pressure: SpO2: Height: Weight: BMI: Neck Circumference:
== END ==
LOC: 3 N SLEEP 13:57
PROVIDERS: ATTEND Internal Medicine
DX: G47.33 Obstructive sleep apnea (adult) (pediatric) (principal); E66.9 Obesity, unspecified; J45.909 Unspecified asthma, uncomplicated; Z98.890 Other specified postprocedural states; Z68.31 Body mass index [BMI] 31.0-31.9, adult; Z87.19 Personal history of other diseases of the digestive system; Z91.09 Other allergy status, other than to drugs and biological substances
CPT/HCPCS: 99211

== ENCOUNTER → 2023-07-06 | Outpatient (CLI) | payer OTHER ==
--- NOTE | 2023-07-16 18:37 | P.PCN ---
Description of Procedure: CLINICAL: A home sleep apnea test has been done for confirmation of possible obstructive sleep apnea-hypopnea syndrome. DESCRIPTION OF PROCEDURE: RESULTS: Recording time was 7 hours 41 minutes. Evaluation time was 7 hours 17 minutes. Evaluation time is sufficient for making conclusion about results of the test. Raw data of sleep recording has been reviewed and is adequate. Respiratory channel showed 18 apneas and 151 hypopneas. Apnea-hypopnea index was 23.2 per hour. Pulse rate in the range between minimum 51, maximum 118, average 65 by computer calculation. Lowest desaturation was 81 %. IMPRESSION: 1. Moderate Obstructive Sleep Apnea Hypopnea Syndrome. Please see other impressions from consultation. PLAN: 1. The patient should have PAP titration for correction of respiratory abnormallities during sleep. 2. I will see patient for follow up visit to discuss results of the test, evaluate clinical response on treatment with PAP therapy and make any necessary adjustments related to mask fitting, pressure, and humidification. 3. Watching weight. 4. Sleep hygiene with regular time in bed for at least 8 hours. 5. No driving if feeling any sleepiness. Thank you very much for allowing me to participate in the management of your patient. Sincerely, Peña Osborne MD, PhD, FAASM Diplomat of [place] [employer] Sleep Medicine Board of [place] [employer] Occupational Health Technician of [facility] [place]
== END ==
LOC: 3 N SLEEP 13:08
PROVIDERS: ATTEND Internal Medicine
DX: G47.33 Obstructive sleep apnea (adult) (pediatric) (principal); Z91.048 Other nonmedicinal substance allergy status